=== PATIENT | female | born 1995 ===

== ENCOUNTER 2017-10-08 03:48 | Emergency (ER) | payer OTHER ==
[~2017-10-08] VITALS: Ht 170.2 cm; Wt 72.8 kg
[~2017-10-08 03:48] MED LIST: IBUP-1459 PO
[2017-10-08 03:52] VITALS: Ht 170.2 cm; Wt 72.8 kg
[2017-10-08] MEDS ORDERED: ONDANSETRON INJ 2 MG/ML 2 ML VIAL IV STA (04:05)
[2017-10-08] MEDS ORDERED: KETOROLAC TROMETHAMINE 30 MG/ML VIAL IV STA (04:05)
[2017-10-08] MEDS ORDERED: ACETAMINOPHEN 1000 MG/100 ML IV IV ONE (04:12)
[2017-10-08] MEDS ORDERED: SODIUM CHLORIDE 0.9% 1000ML 1,000 ML IV ONE (04:15)
[2017-10-08] MEDS ORDERED: ACETAMINOPHEN IV 1,000 MG in EMPTY BAG 0 ML IV ONE (04:15)
[2017-10-08 04:24] LABS: BASO % 0.3 %; BASO ABS # 0.02 K/uL (0-0.2); EOS ABS # 0.07 K/uL (0-0.5); HEMATOCRIT 40.7 % (37-47); HEMOGLOBIN 13.6 g/dL (12.0-16.0); LYMPH % 9.2 %; LYMPH ABS # 0.67 K/uL (1.2-3.4); MEAN CELL VOLUME 78.1 fL (80-100); MEAN CORPUSCULAR HEMOGLOBIN 26.1 pg (25-34); MEAN CORPUSCULAR HGB CONC 33.4 g/dl (32-36); MEAN PLATELET VOLUME 9.8 fL (7.4-10.4); MONO % 4.4 %; MONO ABS # 0.32 K/uL (0.11-0.59); NEUT % 85.1 %; NEUT ABS # 6.21 K/uL (1.4-6.5); PLATELET COUNT 191 K/uL (130-400); RED CELL DISTRIBUTION WIDTH SD 39.7 fL (36.4-46.3); WHITE BLOOD COUNT 7.29 K/uL (4.8-10.8)
[2017-10-08 04:43] LABS: ALBUMIN 4.2 gm/dl (3.4-5.0); CALCIUM 8.7 mg/dl (8.5-10.1); CREATININE 0.96 mg/dl (0.60-1.20); POTASSIUM 3.6 mmol/L (3.5-5.1)
[2017-10-08 04:46] LABS: TOTAL PROTEIN 7.7 gm/dl (6.4-8.2)
[2017-10-08 04:48] LABS: INFLUENZA B ANTIGEN Neg for Influ B (NEG)
[2017-10-08 05:12] VITALS: BP 98/60; PULSE 66; TEMP 37.2; O2SAT 98
--- NOTE | 2017-10-08 06:46 | EMERGENCY ROOM VISIT NOTE ---
History First contact with patient: 03:56 Chief Complaint: FEVER Stated Complaint: FEVER,NO APPETITE TO EAT History of Present Illness The patient is a 22 year old female who presents to the Emergency Room with complaints of low-grade fever, nausea, and mild epigastric discomfort that began 5 or 6 hours ago. The patient states that she was feeling well all day until tonight. She has not had nausea or vomiting. No lower abdominal pain. She is not sexually active and denies chance of . The patient has not taken anything [id number] for her symptoms, but does report some shaking chills tonight she does not have known exposure to disease and considers himself otherwise usually healthy. She rates her discomfort a 4/10. Review of Systems More than 10 systems were reviewed and otherwise negative with the exception of history of present illness. Past Medical/Surgical History No chronic medical disease Family History No pertinent family history Social History Smoking Status: Never Smoker Occupation Status: [employer] Current/Historical Medications Scheduled PRN Ibuprofen (Motrin), 400 MG PO UD PRN for Pain or Fever Physical Exam Vital Signs Date Time Temp Pulse Resp B/P (MAP) Pulse Ox O2 Delivery O2 Flow Rate FiO2 10/08/17 05:12 37.2 66 18 98/60 98 Room Air 10/08/17 03:52 37.5 76 18 128/82 96 Room Air Physical Exam VITALS: Vitals are noted on the nurse's note and reviewed by myself. Vital signs stable. GENERAL: Well-developed, well-nourished, female, who is in no acute distress and resting comfortably. Patient is cooperative with the examination. HEAD: Normocephalic atraumatic. EARS: External ear normal. External auditory canals clear, tympanic membranes pearly cardenas without erythema or effusion bilaterally. EYES: Pupils equal round and reactive to light and accommodation. Conjunctivae without injection, sclerae without icterus. Extraocular movements intact. NOSE: Patent, turbinates without inflammation or discharge. MOUTH: Mucous membranes moist. Tonsils are not enlarged. Pharynx without erythema, blood, or exudate. Uvula midline. Airway patent. NECK: Supple without nuchal rigidity. No lymphadenopathy. No thyromegaly. Cervical spine is nontender. HEART: Regular rate and rhythm without murmurs gallops or rubs. LUNGS: Clear to auscultation bilaterally without wheezes, rales or rhonchi. No retractions or accessory muscle use. ABDOMEN: Positive normal bowel sounds x 4. Soft, nontender, without masses or organomegaly. No guarding or rebound tenderness. MUSCULOSKELETAL: No muscle atrophy, erythema, or edema noted. Full range of motion in all extremities. No tenderness to palpation. Normal gait. Strength 5/5 throughout. NEURO: Patient was alert and oriented to person place and time. CN II through XII grossly intact. Medical Decision & Procedures ER Provider Diagnostic Interpretation: ABDOMEN 2VIEW W/PA CHEST RTN CLINICAL HISTORY: fever and nausea fever. Nausea. COMPARISON STUDY: No previous studies for comparison. FINDINGS: The soft tissues, psoas shadows, renal outlines and intestinal gas pattern appear normal. There is no evidence for bowel obstruction. There is no evidence for free intraperitoneal air. No abnormal abdominal calcifications are seen. A frontal view of the chest was performed and is unremarkable. IMPRESSION: Normal study. Laboratory Results 10/08/17 04:10 Red Blood Count 5.21, Mean Corpuscular Volume 78.1, Mean Corpuscular Hemoglobin 26.1, Mean Corpuscular Hemoglobin Concent 33.4, Mean Platelet Volume 9.8, Neutrophils (%) (Auto) 85.1, Lymphocytes (%) (Auto) 9.2, Monocytes (%) (Auto) 4.4, Eosinophils (%) (Auto) 1.0, Basophils (%) (Auto) 0.3, Neutrophils # (Auto) 6.21, Lymphocytes # (Auto) 0.67, Monocytes # (Auto) 0.32, Eosinophils # (Auto) 0.07, Basophils # (Auto) 0.02 10/08/17 04:10 Test 10/08/17 04:10 10/08/17 04:23 White Blood Count 7.29 K/uL (4.8-10.8) Red Blood Count 5.21 M/uL (4.2-5.4) Hemoglobin 13.6 g/dL (12.0-16.0) Hematocrit 40.7 % (37-47) Mean Corpuscular Volume 78.1 fL (80-100) Mean Corpuscular Hemoglobin 26.1 pg (25-34) Mean Corpuscular Hemoglobin Concent 33.4 g/dl (32-36) Platelet Count 191 K/uL (130-400) Mean Platelet Volume 9.8 fL (7.4-10.4) Neutrophils (%) (Auto) 85.1 % Lymphocytes (%) (Auto) 9.2 % Monocytes (%) (Auto) 4.4 % Eosinophils (%) (Auto) 1.0 % Basophils (%) (Auto) 0.3 % Neutrophils # (Auto) 6.21 K/uL (1.4-6.5) Lymphocytes # (Auto) 0.67 K/uL (1.2-3.4) Monocytes # (Auto) 0.32 K/uL (0.11-0.59) Eosinophils # (Auto) 0.07 K/uL (0-0.5) Basophils # (Auto) 0.02 K/uL (0-0.2) RDW Standard Deviation 39.7 fL (36.4-46.3) RDW Coefficient of Variation 14.0 % (11.5-14.5) Immature Granulocyte % (Auto) 0.0 % Immature Granulocyte # (Auto) 0.00 K/uL (0.00-0.02) Anion Gap 5.0 mmol/L (3-11) Est Creatinine Clear Calc Drug Dose 90.9 ml/min Estimated GFR () 98.7 Estimated GFR (Non- 85.1 BUN/Creatinine Ratio 24.5 (10-20) Calcium Level 8.7 mg/dl (8.5-10.1) Total Bilirubin 0.3 mg/dl (0.2-1) Aspartate Amino Transf (AST/SGOT) 39 U/L (15-37) Alanine Aminotransferase (ALT/SGPT) 27 U/L (12-78) Alkaline Phosphatase 48 U/L (45-117) Total Protein 7.7 gm/dl (6.4-8.2) Albumin 4.2 gm/dl (3.4-5.0) Globulin 3.5 gm/dl (2.5-4.0) Albumin/Globulin Ratio 1.2 (0.9-2) Influenza Type A Antigen Neg for Influ A (NEG) Influenza Type B Antigen Neg for Influ B (NEG) Medications Administered Medications (Trade) Dose Ordered Sig/[place] Route Start Time Stop Time Status Last Admin Dose Admin Sodium Chloride 1,000 ml @ 999 mls/hr Q1H1M ONCE IV 10/08/17 04:15 10/08/17 05:15 DC 10/08/17 04:17 999 MLS/HR Ondansetron HCl (Zofran Inj) 4 mg NOW STAT IV 10/08/17 04:05 10/08/17 04:08 DC 10/08/17 04:16 4 MG Ketorolac Tromethamine (Toradol Inj) 30 mg NOW STAT IV 10/08/17 04:05 10/08/17 04:08 DC 10/08/17 04:17 30 MG Acetaminophen (Ofirmev Iv) 1,000 mg STK-MED ONCE IV 10/08/17 04:12 10/08/17 04:13 DC 10/08/17 04:17 1,000 MG ED Course Physical exam and history were performed. Nursing notes, EMR, and Medication List were personally reviewed. Patient appears to have reports of mild nausea and fever at home. On presentation the patient appears well with a temperature of 37.5 in triage. She does not appear toxic and is certainly without evidence of meningitis or encephalitis. IV access was established and labs were obtained. The patient was hydrated and medicated as above. Plain films were gathered. The patient's blood work is as above and was reviewed. She does not have a significantly elevated white blood cell count, gross anemia, bandemia, or significant electrolyte imbalance. Transaminases are not diagnostic. X-ray was reviewed by myself and radiology showing no acute process. On reevaluation the patient was sleeping very comfortably in her ER bed. She is felt well for discharge home provided she have close follow-up with her primary care physician. I suspect her symptoms are related to a viral or foodborne illness. She was otherwise invited back to the ER with any new, worsening, or concerning symptoms. The chart was completed utilizing [employer] Voice Recognition Software. Grammatical errors, random word insertions, pronoun errors, and incomplete sentences are an occasional consequence of this system due to software limitations, ambient noise, and hardware issues. Any formal questions or concerns about the content, text, or information contained within the body of this dictation should be directly addressed to the provider for clarification. . Medical Decision Differential diagnosis: Etiologies such as gastroenteritis, food borne illness, infections, appendicitis , diverticulitis, inflammatory bowel disease, obstruction, GI bleed, biliary pathology, as well as others were entertained. Impression Primary Impression: Fever Additional Impression: Nausea Departure Information Dispostion Home / Self-Care Condition GOOD Referrals [facility] (PCP) Forms HOME CARE DOCUMENTATION FORM, IMPORTANT VISIT INFORMATION Patient Instructions My [facility] Additional Instructions You were seen and evaluated today on an emergency basis only. This is not a substitute for, or an effort to provide, complete comprehensive medical care. It is not possible to recognize and treat all injuries or illnesses in a single emergency department visit. For this reason it is recommended that you followup with your primary care physician or [facility] services in the next 1-2 days for recheck of your condition. For baseline pain relief you may alternate ibuprofen and acetaminophen every 4 hours for pain control. Take 600 mg ibuprofen (Advil) and then 4 hours later take 1000 mg acetaminophen (Tylenol). Do not take more than 3000 mg acetaminophen in a single day. You are welcome to return to the emergency department anytime with new, worsening, or concerning symptoms. Problem Qualifiers
--- NOTE | 2017-10-08 07:06 | DIAGNOSTIC IMAGING REPORT ---
ABDOMEN 2VIEW W/PA CHEST RTN CLINICAL HISTORY: fever and nausea fever. Nausea. COMPARISON STUDY: No previous studies for comparison. FINDINGS: The soft tissues, psoas shadows, renal outlines and intestinal gas pattern appear normal. There is no evidence for bowel obstruction. There is no evidence for free intraperitoneal air. No abnormal abdominal calcifications are seen. A frontal view of the chest was performed and is unremarkable. IMPRESSION: Normal study. The above report was generated using voice recognition software. It may contain grammatical, syntax or spelling errors. Electronically signed by: Andre Villarreal M.D. 10/08/2017 7:04 AM Dictated Date/Time: 10/08/2017 7:03 AM
== END 2017-10-08 05:14 | disposition home or self-care (01) ==
LOC: C.EDB 03:49
DX: R50.9 Fever, unspecified (principal); R11.2 Nausea with vomiting, unspecified; R10.13 Epigastric pain